=== PATIENT | male | born 1985 | race Caucasian/White ===

== ENCOUNTER 2017-08-03 22:02 | Inpatient (IN) | payer OTHER ==
[~2017-08-03] VITALS: Ht 190.5 cm; Wt 80.2 kg
[2017-08-03] MEDS ORDERED: LORazepam 2 MG/ML, 1ML ONE ×2 (22:40→23:37)
[2017-08-03] MEDS ORDERED: THIAMINE 100MG TABLET ONE (22:40)
[2017-08-03] MEDS: LORazepam 2 MG/ML, 1ML IVPush PRN ×2 (22:42→23:52)
[2017-08-03 22:57] LABS: BASOPHILS # (AUTO) 0.01 x10^3/uL (0-0.1); BASOPHILS % (AUTO) 0 % (0-1); EOSINOPHILS % (AUTO) 0 % (1-7); LYMPHOCYTES # (AUTO) 0.37 x10^3/uL (1-3.4); LYMPHOCYTES % (AUTO) 3 % (22-44); MD NO; MEAN CORPUSCULAR HEMOGLOBIN 30.5 pg (27.5-34.5); MEAN CORPUSCULAR HGB CONC 34.5 g/dL (33.2-36.2); MEAN CORPUSCULAR VOLUME 88.4 fL (81-97); MEAN PLATELET VOLUME 7.8 fL (7.4-10.4); MONOCYTES # (AUTO) 0.62 x10^3/uL (0.2-0.8); MONOCYTES % (AUTO) 6 % (2-9); NEUTROPHILS # (AUTO) 10.16 x10^3/uL (1.8-6.8); NEUTROPHILS % (AUTO) 91 % (42-75); PLATELET COUNT 105 x10^3/uL (130-400); RED BLOOD COUNT 5.49 x10^6/uL (4.38-5.82); RED CELL DISTRIBUTION WIDTH 12.3 % (9.4-14.8)
[2017-08-03] MEDS ORDERED: SODIUM CHLORIDE FLUSH 10ML SYR IVF ONE (23:00)
[2017-08-03] MEDS ORDERED: SODIUM CHLORIDE 0.9% 1,000ML IVBOLUS ONE (23:00)
[2017-08-03] MEDS ORDERED: THIAMINE 100MG TABLET PO ONE (23:00)
[2017-08-03 23:04] LABS: ALANINE AMINOTRANSFERASE 185 U/L (12-78); ANION GAP 15 mmol/L (5-15); CALCIUM 9.7 mg/dL (8.5-10.1); CHLORIDE 95 mmol/L (98-107); CREATININE 0.67 mg/dL (0.7-1.3)
[2017-08-03 23:06] LABS: ALKALINE PHOSPHATASE 118 U/L (45-117); BILIRUBIN,TOTAL 2.6 mg/dL (0.2-1.0); TOTAL PROTEIN 7.7 g/dL (6.4-8.2)
[2017-08-04] MEDS ORDERED: POTASSIUM CHLORIDE 20 MEQ TAB.ER.PRT PO ONE
[2017-08-04] MEDS ORDERED: POTASSIUM CHLORIDE 20 MEQ TAB.ER.PRT ONE (00:06)
[2017-08-04 03:04] VITALS: BP 145/98
[2017-08-04] MEDS ORDERED: POTASSIUM CHLORIDE 20 MEQ, MVI ADULT 10 ML, FOLIC ACID 1 MG, MAGNESIUM SULFATE 1 GM in ... IV SCH (04:25)
[2017-08-04] MEDS ORDERED: LORazepam 2 MG/ML, 1ML IV PRN ×5 (04:30)
[2017-08-04] MEDS ORDERED: ACETAMINOPHEN 325 MG TABLET PO PRN (04:30)
[2017-08-04] MEDS ORDERED: ONDANSETRON 2MG/ML, 2ML IV PRN (04:30)
[2017-08-04] MEDS ORDERED: LORazepam 0.5MG TABLET PO PRN (04:30)
[2017-08-04] MEDS ORDERED: LORazepam 1MG TABLET PO PRN ×4 (04:30)
[2017-08-04 07:00] LABS: ANION GAP 9 mmol/L (5-15); CALCIUM 8.9 mg/dL (8.5-10.1); CHLORIDE 97 mmol/L (98-107); CREATININE 0.76 mg/dL (0.7-1.3)
[2017-08-04 07:08] VITALS: BP 141/89
[2017-08-04] MEDS ORDERED: CHLORDIAZEPOXIDE 25 MG CAPSULE PO PRN (08:00)
[2017-08-04] MEDS ORDERED: LORazepam 2 MG/ML, 1ML IVPush PRN (08:00)
[2017-08-04] MEDS: ENOXAPARIN 40 MG/0.4 ML SQ SCH (08:30)
[2017-08-04] MEDS ORDERED: THIAMINE 100MG TABLET PO SCH (09:00)
[2017-08-04 09:55] VITALS: BP 149/96
[2017-08-04] MEDS: THIAMINE IV SCH (11:10)
[2017-08-04] MEDS: [UNRECOGNIZED DRUG - OTHER] IV SCH (11:10)
[2017-08-04] MEDS: FOLIC ACID IV SCH (11:10)
[2017-08-04] MEDS: POTASSIUM CHLORIDE IV SCH (11:10)
[2017-08-04] MEDS: MAGNESIUM SULFATE IV SCH (11:10)
[2017-08-04 13:09] VITALS: BP 138/86
[2017-08-04] MEDS: NS + 40MEQ KCL 1,000 ML IV SCH (18:59)
[2017-08-04 19:12] VITALS: BP 125/80
[2017-08-05 01:37] VITALS: BP 138/86
[2017-08-05] MEDS: NS + 40MEQ KCL 1,000 ML IV SCH ×2 (03:23→10:45)
[2017-08-05 05:13] LABS: MEAN CORPUSCULAR HGB CONC 33.9 g/dL (33.2-36.2); MEAN CORPUSCULAR VOLUME 88.5 fL (81-97); RED CELL DISTRIBUTION WIDTH 12.4 % (9.4-14.8)
[2017-08-05 05:18] LABS: ANION GAP 8 mmol/L (5-15); CALCIUM 8.9 mg/dL (8.5-10.1); CHLORIDE 106 mmol/L (98-107)
[2017-08-05 05:56] LABS: BASOPHILS # (AUTO) 0.03 x10^3/uL (0-0.1); BASOPHILS % (AUTO) 1 % (0-1); EOSINOPHILS # (AUTO) 0.24 x10^3/uL (0-0.4); EOSINOPHILS % (AUTO) 4 % (1-7); LYMPHOCYTES # (AUTO) 1.31 x10^3/uL (1-3.4); LYMPHOCYTES % (AUTO) 22 % (22-44); MD SCAN; MEAN PLATELET VOLUME 8.1 fL (7.4-10.4); MONOCYTES # (AUTO) 0.34 x10^3/uL (0.2-0.8); MONOCYTES % (AUTO) 6 % (2-9); NEUTROPHILS % (AUTO) 68 % (42-75); PLATELET COUNT 64 x10^3/uL (130-400)
[2017-08-05 07:52] VITALS: BP 142/74
[2017-08-05] MEDS: POTASSIUM CHLORIDE IV SCH (08:30)
[2017-08-05] MEDS: ENOXAPARIN 40 MG/0.4 ML SQ SCH (08:30)
[2017-08-05] MEDS: [UNRECOGNIZED DRUG - OTHER] IV SCH (08:30)
[2017-08-05] MEDS: FOLIC ACID IV SCH (08:30)
[2017-08-05] MEDS: MAGNESIUM SULFATE IV SCH (08:30)
[2017-08-05] MEDS: THIAMINE IV SCH (08:30)
[2017-08-05] MEDS ORDERED: THIAMINE 100 MG in DEXTROSE 5% 50 ML IVPB SCH (09:00)
== END 2017-08-05 12:35 | disposition home or self-care (01) | DRG 101 ==
LOC: ED 08-04 00:34 → EDIP 08-04 01:36 → EDBD 08-04 01:36 → MERGE 08-04 01:36 → 4WST 08-04 03:01 → DCLOUNGE 08-05 12:24
PROVIDERS: ADMIT Family Medicine; ATTEND Family Medicine
DX: G40.89 Other seizures (principal); F10.239 Alcohol dependence with withdrawal, unspecified; K70.10 Alcoholic hepatitis without ascites; E87.6 Hypokalemia; Z71.41 Alcohol abuse counseling and surveillance of alcoholic
CPT/HCPCS: 36415; 80048; 80053; 83735; 84100; 85025; 93005; 96361; 96374; 96376; J3411; J3475; J3480; J7042; J2060; J7030

== ENCOUNTER 2017-12-16 01:29 | Emergency (ER) | payer OTHER ==
[~2017-12-16] VITALS: Ht 190.5 cm; Wt 82.5 kg
[2017-12-16 01:36] VITALS: BP 128/83
[2017-12-16] MEDS ORDERED: IBUPROFEN 200 MG TABLET PO ONE (02:00)
[2017-12-16] MEDS ORDERED: IBUPROFEN 200 MG TABLET ONE (02:06)
== END 2017-12-16 02:56 | disposition home or self-care (01) ==
LOC: ED 02:50
DX: G89.11 Acute pain due to trauma (principal); M25.571 Pain in right ankle and joints of right foot; X58.XXXA Exposure to other specified factors, initial encounter; Y93.89 Activity, other specified; Y92.89 Other specified places as the place of occurrence of the external cause; Y99.8 Other external cause status
CPT/HCPCS: 99284

== ENCOUNTER 2017-12-22 16:19 | Emergency (ER) | payer OTHER ==
[~2017-12-22] VITALS: Ht 190.5 cm; Wt 84.0 kg
[2017-12-22 16:21] VITALS: BP 162/92
[2017-12-22] MEDS ORDERED: IBUP-1623 PO (16:42)
[2017-12-22] MEDS ORDERED: ACETAMINOPHEN 500 MG TABLET PO ONE (17:30)
[2017-12-22] MEDS ORDERED: ACETAMINOPHEN 500 MG TABLET ONE (17:41)
== END 2017-12-22 18:15 | disposition home or self-care (01) ==
LOC: ED 16:34
DX: S90.01XA Contusion of right ankle, initial encounter (principal); S80.12XA Contusion of left lower leg, initial encounter; F10.220 Alcohol dependence with intoxication, uncomplicated; X50.1XXA Overexertion from prolonged static or awkward postures, initial encounter; Y93.89 Activity, other specified; Y99.8 Other external cause status; Y92.89 Other specified places as the place of occurrence of the external cause
CPT/HCPCS: 99283

== ENCOUNTER 2018-01-04 01:59 | Emergency (ER) | payer SELFPAY ==
[~2018-01-04] VITALS: Ht 190.5 cm; Wt 100.0 kg
[~2018-01-04 01:59] MED LIST: IBUP-1623 PO
[2018-01-04] MEDS ORDERED: SODIUM CHLORIDE 0.9% 1,000ML IVBOLUS ONE (02:30)
[2018-01-04 02:31] LABS: BASOPHILS # (AUTO) 0.11 x10^3/uL (0-0.1); BASOPHILS % (AUTO) 2 % (0-1); EOSINOPHILS # (AUTO) 0.01 x10^3/uL (0-0.4); EOSINOPHILS % (AUTO) 0 % (1-7); LYMPHOCYTES # (AUTO) 0.73 x10^3/uL (1-3.4); LYMPHOCYTES % (AUTO) 10 % (22-44); MD NO; MEAN CORPUSCULAR HEMOGLOBIN 32.3 pg (27.5-34.5); MEAN CORPUSCULAR HGB CONC 34.5 g/dL (33.2-36.2); MEAN CORPUSCULAR VOLUME 93.6 fL (81-97); MEAN PLATELET VOLUME 5.9 fL (7.4-10.4); MONOCYTES % (AUTO) 7 % (2-9); NEUTROPHILS # (AUTO) 5.96 x10^3/uL (1.8-6.8); NEUTROPHILS % (AUTO) 82 % (42-75); PLATELET COUNT 275 x10^3/uL (130-400); RED BLOOD COUNT 5.11 x10^6/uL (4.38-5.82)
[2018-01-04 02:40] LABS: ANION GAP 17 mmol/L (5-15); CALCIUM 8.6 mg/dL (8.5-10.1); CHLORIDE 103 mmol/L (98-107)
[2018-01-04 02:45] LABS: ALANINE AMINOTRANSFERASE 180 U/L (12-78); ALKALINE PHOSPHATASE 121 U/L (45-117); BILIRUBIN,TOTAL 0.5 mg/dL (0.2-1.0); CREATININE 0.81 mg/dL (0.7-1.3)
[2018-01-04 03:17] VITALS: BP 139/66
== END 2018-01-04 06:01 | disposition home or self-care (01) ==
LOC: ED 02:05
DX: F10.120 Alcohol abuse with intoxication, uncomplicated (principal); Z72.9 Problem related to lifestyle, unspecified
CPT/HCPCS: 36415; 80053; 80307; 85025; 99283; J7030

== ENCOUNTER 2018-01-06 00:09 | Emergency (ER) | payer SELFPAY ==
[~2018-01-06] VITALS: Ht 172.7 cm; Wt 60.0 kg
[2018-01-06 01:15] VITALS: BP 135/82
== END 2018-01-06 01:18 | disposition home or self-care (01) ==
LOC: ED 00:54
DX: F10.220 Alcohol dependence with intoxication, uncomplicated (principal); Z72.9 Problem related to lifestyle, unspecified
CPT/HCPCS: 93005; 99283

== ENCOUNTER 2018-01-28 14:53 | Emergency (ER) | payer SELFPAY ==
[~2018-01-28] VITALS: Ht 193 cm; Wt 80.0 kg
[2018-01-28 15:22] LABS: BASOPHILS # (AUTO) 0.23 x10^3/uL (0-0.1); BASOPHILS % (AUTO) 3 % (0-1); EOSINOPHILS # (AUTO) 0.06 x10^3/uL (0-0.4); EOSINOPHILS % (AUTO) 1 % (1-7); LYMPHOCYTES # (AUTO) 2.71 x10^3/uL (1-3.4); LYMPHOCYTES % (AUTO) 40 % (22-44); MD NO; MEAN CORPUSCULAR HEMOGLOBIN 32.7 pg (27.5-34.5); MEAN CORPUSCULAR HGB CONC 34.3 g/dL (33.2-36.2); MEAN CORPUSCULAR VOLUME 95.5 fL (81-97); MEAN PLATELET VOLUME 6.4 fL (7.4-10.4); MONOCYTES # (AUTO) 0.57 x10^3/uL (0.2-0.8); MONOCYTES % (AUTO) 8 % (2-9); NEUTROPHILS # (AUTO) 3.24 x10^3/uL (1.8-6.8); NEUTROPHILS % (AUTO) 48 % (42-75); PLATELET COUNT 607 x10^3/uL (130-400); RED BLOOD COUNT 5.17 x10^6/uL (4.38-5.82); RED CELL DISTRIBUTION WIDTH 13.8 % (9.4-14.8)
[2018-01-28 15:28] LABS: ALBUMIN 4.5 g/dL (3.4-5.0); ANION GAP 17 mmol/L (5-15); CALCIUM 8.2 mg/dL (8.5-10.1); CHLORIDE 100 mmol/L (98-107)
[2018-01-28 15:34] LABS: ALANINE AMINOTRANSFERASE 56 U/L (12-78); ALKALINE PHOSPHATASE 123 U/L (45-117); BILIRUBIN,TOTAL 0.6 mg/dL (0.2-1.0); TOTAL PROTEIN 8.3 g/dL (6.4-8.2)
[2018-01-28] MEDS ORDERED: SODIUM CHLORIDE 0.9% 1,000ML IVBOLUS ONE (17:00)
[2018-01-28] MEDS ORDERED: ONDANSETRON 2MG/ML, 2ML IVPush ONE (17:00)
[2018-01-28] MEDS ORDERED: THIAMINE 100 MG/ML, 2ML ONE (17:05)
[2018-01-28] MEDS ORDERED: ONDANSETRON 2MG/ML, 2ML ONE (17:07)
[2018-01-28] MEDS ORDERED: THIAMINE 100 MG/ML, 2ML IM ONE (17:30)
[2018-01-28 18:47] VITALS: BP 128/80
== END 2018-01-28 19:03 | disposition home or self-care (01) ==
LOC: ED 15:34
DX: F10.229 Alcohol dependence with intoxication, unspecified (principal); Z72.9 Problem related to lifestyle, unspecified
CPT/HCPCS: 36415; 72110; 73130; 80053; 80307; 85025; 96361; 96372; 96374; 99284; J2405; J3411; J7030